=== PATIENT | female | born 1975 | race Caucasian/White ===

== ENCOUNTER 2019-06-24 08:58 | Inpatient (IN) | payer MEDICAID ==
[~2019-06-24] VITALS: Ht 167.6 cm; Wt 70.0 kg
[2019-06-24 09:57] LABS: BASOPHILS % (AUTO) 0.5 % (0.0-2.0); EOSINOPHILS % (AUTO) 1.4 % (1.0-6.0); HEMATOCRIT 31.3 % (36-46); HEMOGLOBIN 10.5 g/dL (12.0-16.0); LYMPHOCYTES # (AUTO) 2.3 K/uL (1.0-4.8); LYMPHOCYTES % (AUTO) 18.3 % (22.0-44.0); MEAN CORPUSCULAR HEMOGLOBIN 28.3 pg (26.0-34.0); MEAN CORPUSCULAR HGB CONC 33.6 G/dL (31.0-37.0); MEAN CORPUSCULAR VOLUME 84 fL (80-100); MONOCYTES # (AUTO) 1.3 K/uL (0.1-1.0); MONOCYTES % (AUTO) 10.8 % (2.0-9.0); NEUTROPHILS # (AUTO) 8.5 K/uL (1.8-7.7); PLATELET COUNT (AUTO) 321 K/uL (150-450); RED BLOOD CELL COUNT(AUTO) 3.72 MIL/uL (4.00-5.20); RED CELL DISTRIBUTION WIDTH 18.5 % (11.5-14.5)
[2019-06-24] MEDS ORDERED: LORazepam 2 MG TABLET PO ONE (10:00)
[2019-06-24] MEDS ORDERED: DiphenhydrAMINE HCL 25 MG CAPSULE PO ONE (10:00)
[2019-06-24] MEDS ORDERED: HALOPERIDOL 5 MG TABLET PO ONE (10:00)
[2019-06-24 10:06] LABS: ANION GAP 11 mmol/L (8-16); CALCIUM, TOTAL 8.1 mg/dL (8.8-10.5); CARBON DIOXIDE 25 mmol/L (22-29); CHLORIDE 102 mmol/L (98-107); CREATININE 0.65 mg/dL (0.60-1.30); GLOMERULAR FILTR. RATE CALC > 60 mL/min (>60); GLUCOSE,RANDOM 87 mg/dL (70-110); POTASSIUM 3.7 mmol/L (3.5-5.1); SODIUM SERUM 138 mmol/L (136-145); UREA NITROGEN, BLOOD 21 mg/dL (7-18)
[2019-06-24 10:30] LABS: ALANINE AMINOTRANSFERASE 24 U/L (12-78); ALBUMIN 3.1 g/dL (3.4-5.0); ALKALINE PHOSPHATASE 147 U/L (46-116); ASPARTATE AMINOTRANSFERASE 30 U/L (15-37); BILIRUBIN,TOTAL 0.2 mg/dL (0.1-1.0); CREATINE KINASE, TOTAL ONLY 75 U/L (26-192); HCG,QUANTITATIVE 1 mIU/mL (0-6); TOTAL PROTEIN, SERUM 8.4 g/dL (6.4-8.2)
[2019-06-24] MEDS ORDERED: OLANZapine 5 MG RAPDIS TABLET PO PRN (10:30)
[2019-06-24] MEDS ORDERED: ZOLPIDEM TARTRATE 10 MG TABLET PO PRN (10:30)
[2019-06-24] MEDS ORDERED: LORazepam 2 MG TABLET PO PRN (10:30)
[2019-06-24 11:00] LABS: APPEARANCE,URINE CLOUDY (CLEAR); BILIRUBIN,URINE NEGATIVE (NEGATIVE); GLUCOSE, URINE (UA) NEGATIVE (NEGATIVE); KETONES,URINE NEGATIVE (NEGATIVE); LEUKOCYTE ESTERASE ,URINE MODERATE (NEGATIVE); NITRATE,URINE NEGATIVE (NEGATIVE); OCCULT BLOOD,URINE NEGATIVE (NEGATIVE); PROTEIN,URINE SEE CONFIRM (NEGATIVE); UROBILINOGEN,URINE 0.2 mg/dL (<=1.0)
[2019-06-24 11:06] LABS: AMPHET/METH SCREEN,URINE POSITIVE (NEGATIVE); BARBITURATE SCREEN, URINE NEGATIVE (NEGATIVE); BENZODIAZEPINES SCREEN,URINE NEGATIVE (NEGATIVE); CANNABINOID SCREEN,URINE POSITIVE (NEGATIVE); COCAINE SCREEN,URINE NEGATIVE (NEGATIVE); METHADONE SCREEN, URINE NEGATIVE (NEGATIVE); OPIATE SCREEN,URINE NEGATIVE (NEGATIVE)
[2019-06-24 11:07] LABS: PHENCYCLIDINE SCREEN,URINE NEGATIVE (NEGATIVE)
[2019-06-24 11:59] LABS: SULFOSALICYLIC ACID,URINE 1+ (Negative)
[2019-06-24 12:00] LABS: BACTERIA,URINE None Seen /HPF (None Seen); CALCIUM OXALATE CRYSTALS,UR Moderate /LPF (None Seen); RBC,URINE None Seen /HPF (0-2); SQUAMOUS EPITHELIAL CELL,UR Moderate /LPF (None Seen)
[2019-06-24 13:56] VITALS: BP 100/54
[2019-06-24 14:15] VITALS: BP 100/54
[2019-06-24] MEDS: OLANZapine 5 MG TABLET PO SCH (17:47)
[2019-06-24 18:55] VITALS: BP 100/62
[2019-06-25 07:55] LABS: CHOL/HDL RATIO 9.8 (3.9-5.7)
[2019-06-25] MEDS: OLANZapine 5 MG TABLET PO SCH ×2 (09:00→17:00)
[2019-06-25] MEDS ORDERED: IBUPROFEN 400 MG TABLET PO PRN (15:00)
[2019-06-25] MEDS ORDERED: ALBUTEROL SULFATE HFA 90 MCG/PUFF 8 GM INHALER IH PRN (15:00)
[2019-06-25] MEDS ORDERED: ACETAMINOPHEN 325 MG TABLET PO PRN (15:00)
[2019-06-25] MEDS ORDERED: PETROLATUM,WHITE 28 GM JELLY TP PRN (15:00)
[2019-06-25] MEDS ORDERED: ONDANSETRON HCL 4 MG TABLET PO PRN (15:00)
[2019-06-25] MEDS ORDERED: MAG HYDROX/AL HYDROX/SIMETH ES 30 ML SUSPENSION UDCUP PO PRN (15:00)
[2019-06-25] MEDS ORDERED: DOCUSATE SODIUM 100 MG CAPSULE PO PRN (15:00)
[2019-06-25] MEDS ORDERED: NICOTINE 14 MG/24 HOUR PATCH TD PRN (15:00)
[2019-06-25] MEDS ORDERED: MAGNESIUM HYDROXIDE SUSPENSION 30 ML UDCUP PO PRN (15:00)
[2019-06-25] MEDS ORDERED: GuaiFENesin/D-METHORPHAN [SUGAR-FREE] 200-20MG/10 ML SYRUP UDCUP PO PRN (15:00)
[2019-06-25] MEDS ORDERED: CloNIDine HCL 0.1 MG TABLET PO PRN (15:00)
[2019-06-25 16:30] VITALS: BP 107/66
[2019-06-26 00:40] VITALS: BP 104/72
[2019-06-26] MEDS: LOPERAMIDE HCL 2 MG CAPSULE PO PRN ×2 (00:51→19:19)
[2019-06-26 08:30] VITALS: BP 104/57
[2019-06-26] MEDS: OLANZapine 5 MG TABLET PO SCH ×2 (09:00→16:35)
[2019-06-26 16:15] VITALS: BP 103/65
[2019-06-27 03:05] VITALS: BP 100/64
[2019-06-27] MEDS: OLANZapine 5 MG TABLET PO SCH (09:00)
[2019-06-27] MEDS ORDERED: OLAN5TAB2 PO (11:12)
== END 2019-06-27 14:18 | disposition home or self-care (01) | DRG 750 ==
LOC: EMS 09:01 → 3EI 11:27
PROVIDERS: ADMIT Psychiatry & Neurology Psychiatry; ATTEND Psychiatry & Neurology Psychiatry
DX: F20.9 Schizophrenia, unspecified (principal); Z78.1 Physical restraint status; Z59.0 Homelessness; D64.9 Anemia, unspecified; D72.829 Elevated white blood cell count, unspecified; F31.9 Bipolar disorder, unspecified; Z91.14 Patient's other noncompliance with medication regimen; F10.10 Alcohol abuse, uncomplicated; Z79.899 Other long term (current) drug therapy
CPT/HCPCS: G0480; J3230

== ENCOUNTER 2019-06-28 06:42 | Inpatient (IN) | payer MEDICAID ==
[~2019-06-28] VITALS: Ht 160 cm; Wt 67.5 kg
[2019-06-28] MEDS ORDERED: ZOLPIDEM TARTRATE 10 MG TABLET PO PRN (10:30)
[2019-06-28] MEDS ORDERED: HALOPERIDOL LACTATE 5 MG/ML VIAL ONE (11:17)
[2019-06-28] MEDS ORDERED: DiphenhydrAMINE HCL 50 MG/ML VIAL ONE (11:17)
[2019-06-28] MEDS ORDERED: LORazepam 2 MG/ML VIAL ONE (11:17)
[2019-06-28] MEDS ORDERED: DiphenhydrAMINE HCL 50 MG/ML VIAL IM ONE (11:30)
[2019-06-28] MEDS ORDERED: LORazepam 2 MG/ML VIAL IM ONE (11:30)
[2019-06-28] MEDS ORDERED: HALOPERIDOL LACTATE 5 MG/ML VIAL IM ONE (11:30)
[2019-06-28 14:39] VITALS: BP 106/59
[2019-06-28 14:52] VITALS: BP 106/59
[2019-06-28] MEDS ORDERED: INFLUENZA VIRUS VACCINE QVS 2019-20 (3YR+)/PF 60 MCG/0.5 ML SYRINGE IM ONE (15:30)
[2019-06-28 16:00] VITALS: BP 117/64
[2019-06-28 22:36] VITALS: BP 117/64
[2019-06-28] MEDS: LOPERAMIDE HCL 2 MG CAPSULE PO PRN (22:58)
[2019-06-29 00:15] VITALS: BP 89/52
[2019-06-29] MEDS ORDERED: HALOPERIDOL LACTATE 5 MG/ML VIAL IM ONE (11:15)
[2019-06-29] MEDS ORDERED: DiphenhydrAMINE HCL 50 MG/ML VIAL IM ONE (11:15)
[2019-06-29] MEDS ORDERED: LORazepam 2 MG/ML VIAL IM ONE (11:15)
[2019-06-29] MEDS ORDERED: LORazepam 2 MG/ML VIAL ONE (11:17)
[2019-06-29] MEDS ORDERED: DiphenhydrAMINE HCL 50 MG/ML VIAL ONE (11:17)
[2019-06-29] MEDS ORDERED: HALOPERIDOL LACTATE 5 MG/ML VIAL ONE (11:17)
[2019-06-29 19:08] VITALS: BP 90/51
[2019-06-30] MEDS: LOPERAMIDE HCL 2 MG CAPSULE PO PRN (15:44)
[2019-06-30] MEDS: HALOPERIDOL 5 MG TABLET PO PRN (21:35)
[2019-07-01 18:39] VITALS: BP 101/58
[2019-07-01] MEDS: HALOPERIDOL 5 MG TABLET PO PRN (18:42)
[2019-07-02] MEDS ORDERED: MAGNESIUM HYDROXIDE SUSPENSION 30 ML UDCUP PO PRN (12:30)
[2019-07-02] MEDS ORDERED: CloNIDine HCL 0.1 MG TABLET PO PRN (12:30)
[2019-07-02] MEDS ORDERED: MAG HYDROX/AL HYDROX/SIMETH ES 30 ML SUSPENSION UDCUP PO PRN (12:30)
[2019-07-02] MEDS ORDERED: PETROLATUM,WHITE 28 GM JELLY TP PRN (12:30)
[2019-07-02] MEDS ORDERED: DOCUSATE SODIUM 100 MG CAPSULE PO PRN (12:30)
[2019-07-02] MEDS ORDERED: NICOTINE 14 MG/24 HOUR PATCH TD PRN (12:30)
[2019-07-02] MEDS ORDERED: GuaiFENesin/D-METHORPHAN [SUGAR-FREE] 200-20MG/10 ML SYRUP UDCUP PO PRN (12:30)
[2019-07-02] MEDS ORDERED: LOPERAMIDE HCL 2 MG CAPSULE PO PRN (12:30)
[2019-07-02] MEDS ORDERED: ONDANSETRON HCL 4 MG TABLET PO PRN (12:30)
[2019-07-02] MEDS ORDERED: ACETAMINOPHEN 325 MG TABLET PO PRN (12:30)
[2019-07-02] MEDS ORDERED: IBUPROFEN 400 MG TABLET PO PRN (12:30)
[2019-07-02] MEDS ORDERED: ALBUTEROL SULFATE HFA 90 MCG/PUFF 8 GM INHALER IH PRN (12:30)
[2019-07-02] MEDS: HALOPERIDOL 5 MG TABLET PO PRN (20:00)
[2019-07-02] MEDS: LORazepam 2 MG TABLET PO PRN (20:00)
[2019-07-03] MEDS: LORazepam 2 MG TABLET PO PRN ×2 (14:28→18:36)
[2019-07-03 15:28] LABS: BASOPHILS % (AUTO) 0.8 % (0.0-2.0); EOSINOPHILS % (AUTO) 2.8 % (1.0-6.0); HEMATOCRIT 35.4 % (36-46); HEMOGLOBIN 11.8 g/dL (12.0-16.0); LYMPHOCYTES # (AUTO) 2.5 K/uL (1.0-4.8); LYMPHOCYTES % (AUTO) 22.9 % (22.0-44.0); MEAN CORPUSCULAR HEMOGLOBIN 28.9 pg (26.0-34.0); MEAN CORPUSCULAR HGB CONC 33.2 G/dL (31.0-37.0); MEAN CORPUSCULAR VOLUME 87 fL (80-100); MONOCYTES % (AUTO) 9.7 % (2.0-9.0); NEUTROPHILS # (AUTO) 6.8 K/uL (1.8-7.7); NEUTROPHILS % (AUTO) 63.8 % (40.0-70.0); PLATELET COUNT (AUTO) 442 K/uL (150-450); RED BLOOD CELL COUNT(AUTO) 4.06 MIL/uL (4.00-5.20); RED CELL DISTRIBUTION WIDTH 18.8 % (11.5-14.5)
[2019-07-03 15:39] LABS: HEMOGLOBIN A1C 4.6 % (4.5-6.2)
[2019-07-03 16:12] LABS: ALANINE AMINOTRANSFERASE 24 U/L (12-78); ALKALINE PHOSPHATASE 83 U/L (46-116); ANION GAP 7 mmol/L (8-16); ASPARTATE AMINOTRANSFERASE 25 U/L (15-37); BILIRUBIN,TOTAL 0.2 mg/dL (0.1-1.0); CALCIUM, TOTAL 8.4 mg/dL (8.8-10.5); CARBON DIOXIDE 25 mmol/L (22-29); CHLORIDE 99 mmol/L (98-107); CHOL/HDL RATIO 5.6 (3.9-5.7); CHOLESTEROL 158 mg/dL (131-200); CREATININE 0.71 mg/dL (0.60-1.30); FREE T4 (FREE THYROXINE) 0.91 ng/dL (0.76-1.46); GLOMERULAR FILTR. RATE CALC > 60 mL/min (>60); GLUCOSE,RANDOM 117 mg/dL (70-110); HCG,QUANTITATIVE < 1 mIU/mL (0-6); HDL CHOLESTEROL 28 mg/dL (40-60); LDL CHOL (CALC.) 106 mg/dL (0-130); POTASSIUM 4.4 mmol/L (3.5-5.1); SODIUM SERUM 131 mmol/L (136-145); THYROID STIMULATING HORMONE 2.99 uIU/mL (0.36-3.74); TOTAL PROTEIN, SERUM 8.6 g/dL (6.4-8.2); TRIGLYCERIDES 118 mg/dL (15-150); UREA NITROGEN, BLOOD 14 mg/dL (7-18)
[2019-07-03 16:22] VITALS: BP 111/64
[2019-07-03 18:22] LABS: AMPHET/METH SCREEN,URINE NEGATIVE (NEGATIVE); APPEARANCE,URINE CLOUDY (CLEAR); BARBITURATE SCREEN, URINE NEGATIVE (NEGATIVE); BENZODIAZEPINES SCREEN,URINE NEGATIVE (NEGATIVE); BILIRUBIN,URINE NEGATIVE (NEGATIVE); CANNABINOID SCREEN,URINE NEGATIVE (NEGATIVE); COCAINE SCREEN,URINE NEGATIVE (NEGATIVE); GLUCOSE, URINE (UA) NEGATIVE (NEGATIVE); KETONES,URINE NEGATIVE (NEGATIVE); LEUKOCYTE ESTERASE ,URINE LARGE (NEGATIVE); METHADONE SCREEN, URINE NEGATIVE (NEGATIVE); NITRATE,URINE NEGATIVE (NEGATIVE); OCCULT BLOOD,URINE NEGATIVE (NEGATIVE); OPIATE SCREEN,URINE NEGATIVE (NEGATIVE); PROTEIN,URINE NEGATIVE (NEGATIVE); UROBILINOGEN,URINE 0.2 mg/dL (<=1.0)
[2019-07-03] MEDS: HALOPERIDOL 5 MG TABLET PO PRN (18:36)
[2019-07-03 18:38] LABS: BACTERIA,URINE Many /HPF (None Seen); RBC,URINE None Seen /HPF (0-2); SQUAMOUS EPITHELIAL CELL,UR Many /LPF (None Seen)
[2019-07-03 18:57] LABS: PHENCYCLIDINE SCREEN,URINE NEGATIVE (NEGATIVE)
[2019-07-03] MEDS: CIPROFLOXACIN HCL 250 MG TABLET PO SCH (20:19)
[2019-07-04] MEDS: CIPROFLOXACIN HCL 250 MG TABLET PO SCH ×2 (09:07→16:06)
[2019-07-04] MEDS: OLANZapine 10 MG TABLET PO SCH (16:06)
[2019-07-04] MEDS: LORazepam 2 MG TABLET PO PRN (16:22)
[2019-07-04 16:43] VITALS: BP 108/59
[2019-07-05] MEDS: OLANZapine 10 MG TABLET PO SCH (08:03)
[2019-07-05] MEDS: CIPROFLOXACIN HCL 250 MG TABLET PO SCH (08:03)
[2019-07-05] MEDS: LORazepam 2 MG TABLET PO PRN (08:03)
[2019-07-05] MEDS: HALOPERIDOL 5 MG TABLET PO PRN (08:04)
[2019-07-05 08:26] VITALS: BP 116/76
[2019-07-05] MEDS ORDERED: OLAN10TA3 PO (13:56)
[2019-07-05] MEDS ORDERED: CIP250 PO (13:57)
== END 2019-07-05 14:40 | disposition home or self-care (01) | DRG 750 ==
LOC: EMS 06:42 → 3EI 13:54 → 3EC 06-29 12:46
PROVIDERS: ADMIT Psychiatry & Neurology Psychiatry; ATTEND Psychiatry & Neurology Psychiatry
DX: F20.0 Paranoid schizophrenia (principal); I95.9 Hypotension, unspecified; Z78.1 Physical restraint status; Z59.0 Homelessness; N39.0 Urinary tract infection, site not specified; F10.10 Alcohol abuse, uncomplicated; D64.9 Anemia, unspecified; F41.9 Anxiety disorder, unspecified; F15.10 Other stimulant abuse, uncomplicated; F12.10 Cannabis abuse, uncomplicated; F19.10 Other psychoactive substance abuse, uncomplicated; Z91.14 Patient's other noncompliance with medication regimen; Z71.41 Alcohol abuse counseling and surveillance of alcoholic
CPT/HCPCS: 80307; 83036; 84439; 84443; 87086; J1200; J1630; J2060

== ENCOUNTER 2019-08-31 17:14 | Inpatient (IN) | payer MEDICAID ==
[~2019-08-31] VITALS: Ht 165.1 cm; Wt 68.9 kg
[~2019-08-31 17:14] MED LIST: CIP250 PO; OLAN10TA3 PO
[2019-08-31 19:05] LABS: BASOPHILS % (AUTO) 0.5 % (0.0-2.0); EOSINOPHILS % (AUTO) 1.4 % (1.0-6.0); HEMATOCRIT 37.6 % (36-46); HEMOGLOBIN 12.6 g/dL (12.0-16.0); LYMPHOCYTES # (AUTO) 2.4 K/uL (1.0-4.8); LYMPHOCYTES % (AUTO) 24.5 % (22.0-44.0); MEAN CORPUSCULAR HEMOGLOBIN 29.3 pg (26.0-34.0); MEAN CORPUSCULAR HGB CONC 33.6 G/dL (31.0-37.0); MEAN CORPUSCULAR VOLUME 87 fL (80-100); MONOCYTES # (AUTO) 0.8 K/uL (0.1-1.0); MONOCYTES % (AUTO) 8.4 % (2.0-9.0); NEUTROPHILS # (AUTO) 6.3 K/uL (1.8-7.7); NEUTROPHILS % (AUTO) 65.2 % (40.0-70.0); PLATELET COUNT (AUTO) 363 K/uL (150-450); RED BLOOD CELL COUNT(AUTO) 4.32 MIL/uL (4.00-5.20); RED CELL DISTRIBUTION WIDTH 14.7 % (11.5-14.5)
[2019-08-31 19:14] LABS: ANION GAP 6 mmol/L (8-16); CALCIUM, TOTAL 8.8 mg/dL (8.8-10.5); CARBON DIOXIDE 27 mmol/L (22-29); CHLORIDE 101 mmol/L (98-107); CREATININE 0.71 mg/dL (0.60-1.30); GLOMERULAR FILTR. RATE CALC > 60 mL/min (>60); GLUCOSE,RANDOM 96 mg/dL (70-110); POTASSIUM 3.5 mmol/L (3.5-5.1); SODIUM SERUM 134 mmol/L (136-145); UREA NITROGEN, BLOOD 11 mg/dL (7-18)
[2019-08-31 19:25] LABS: ALANINE AMINOTRANSFERASE 16 U/L (12-78); ALBUMIN 3.4 g/dL (3.4-5.0); ALKALINE PHOSPHATASE 63 U/L (46-116); ASPARTATE AMINOTRANSFERASE 19 U/L (15-37); BILIRUBIN,TOTAL 0.2 mg/dL (0.1-1.0); HCG,QUANTITATIVE < 1 mIU/mL (0-6); TOTAL PROTEIN, SERUM 7.9 g/dL (6.4-8.2)
[2019-08-31] MEDS ORDERED: OLANZapine 5 MG RAPDIS TABLET PO PRN (20:15)
[2019-08-31] MEDS: OLANZapine 5 MG TABLET PO SCH (20:45)
[2019-08-31 21:18] LABS: APPEARANCE,URINE CLEAR (CLEAR); BILIRUBIN,URINE NEGATIVE (NEGATIVE); GLUCOSE, URINE (UA) NEGATIVE (NEGATIVE); KETONES,URINE NEGATIVE (NEGATIVE); LEUKOCYTE ESTERASE ,URINE SMALL (NEGATIVE); NITRATE,URINE NEGATIVE (NEGATIVE); OCCULT BLOOD,URINE SMALL (NEGATIVE); PH,URINE 7.5 (5.0-8.0); PROTEIN,URINE NEGATIVE (NEGATIVE); UROBILINOGEN,URINE 0.2 mg/dL (<=1.0)
[2019-08-31 21:20] LABS: AMPHET/METH SCREEN,URINE POSITIVE (NEGATIVE); BARBITURATE SCREEN, URINE NEGATIVE (NEGATIVE); BENZODIAZEPINES SCREEN,URINE NEGATIVE (NEGATIVE); CANNABINOID SCREEN,URINE POSITIVE (NEGATIVE); COCAINE SCREEN,URINE NEGATIVE (NEGATIVE); METHADONE SCREEN, URINE NEGATIVE (NEGATIVE); OPIATE SCREEN,URINE POSITIVE (NEGATIVE)
[2019-08-31 21:21] LABS: PHENCYCLIDINE SCREEN,URINE NEGATIVE (NEGATIVE)
[2019-08-31 21:32] LABS: BACTERIA,URINE None Seen /HPF (None Seen); RBC,URINE 0-2 /HPF (0-2); SQUAMOUS EPITHELIAL CELL,UR Moderate /LPF (None Seen)
[2019-09-01] MEDS ORDERED: HALOPERIDOL LACTATE 5 MG/ML VIAL IM ONE (00:15)
[2019-09-01] MEDS ORDERED: LORazepam 2 MG/ML VIAL IM ONE (00:15)
[2019-09-01] MEDS ORDERED: DiphenhydrAMINE HCL 50 MG/ML VIAL IM ONE (00:15)
[2019-09-01] MEDS ORDERED: INFLUENZA VIRUS VACCINE QVS 2019-20 (3YR+)/PF 60 MCG/0.5 ML SYRINGE IM ONE (01:15)
[2019-09-01] MEDS ORDERED: LOPERAMIDE HCL 2 MG CAPSULE PO PRN (12:15)
[2019-09-01] MEDS ORDERED: TUBERCULIN, PURIFIED PROTEIN DERIVATIVE 5 TU/0.1 ML SYRINGE ID ONE (12:15)
[2019-09-01] MEDS ORDERED: PROMETHAZINE HCL 25 MG TABLET PO PRN (12:15)
[2019-09-01] MEDS ORDERED: HydrOXYzine PAMOATE 50 MG CAPSULE PO PRN (12:15)
[2019-09-01] MEDS ORDERED: MAG HYDROX/AL HYDROX/SIMETH ES 30 ML SUSPENSION UDCUP PO PRN (12:15)
[2019-09-01] MEDS ORDERED: MAGNESIUM HYDROXIDE SUSPENSION 30 ML UDCUP PO PRN (12:15)
[2019-09-01 16:51] VITALS: BP 106/68
[2019-09-01] MEDS: THIAMINE HCL 100 MG TABLET PO SCH (16:57)
[2019-09-01] MEDS: OLANZapine 5 MG TABLET PO SCH (20:41)
[2019-09-01] MEDS: LORazepam 2 MG TABLET PO PRN (21:31)
[2019-09-02 04:26] VITALS: BP 91/57
[2019-09-02 06:25] VITALS: BP 102/63
[2019-09-02] MEDS: NALTREXONE HCL 50 MG TABLET PO SCH ×2 (07:59→08:39)
[2019-09-02] MEDS: THIAMINE HCL 100 MG TABLET PO SCH ×3 (07:59→17:00)
[2019-09-02] MEDS: MULTIVITAMINS WITH MINERALS, THERAPEUTIC TABLET PO SCH ×2 (07:59→08:39)
[2019-09-02] MEDS: FOLIC ACID 1 MG TABLET PO SCH ×2 (07:59→08:39)
[2019-09-02 08:06] VITALS: BP 100/62
[2019-09-02 08:31] LABS: CHOL/HDL RATIO 4.8 (3.9-5.7); FREE T4 (FREE THYROXINE) 1.03 ng/dL (0.76-1.46); THYROID STIMULATING HORMONE 2.52 uIU/mL (0.36-3.74)
[2019-09-02] MEDS: NICOTINE 21 MG/24 HOUR PATCH TD SCH (14:28)
[2019-09-02] MEDS ORDERED: PENICILLIN G BENZATHINE LA 2,400,000 UNITS/4 ML SYRINGE IM ONE (17:00)
[2019-09-02] MEDS: GuaiFENesin/D-METHORPHAN [SUGAR-FREE] 200-20MG/10 ML SYRUP UDCUP PO PRN (17:57)
[2019-09-02] MEDS: LORazepam 2 MG TABLET PO PRN (20:54)
[2019-09-02] MEDS: OLANZapine 5 MG TABLET PO SCH (20:58)
[2019-09-03 05:30] VITALS: BP 100/61
[2019-09-03 08:06] VITALS: BP 119/68
[2019-09-03] MEDS: MULTIVITAMINS WITH MINERALS, THERAPEUTIC TABLET PO SCH (09:00)
[2019-09-03] MEDS: NALTREXONE HCL 50 MG TABLET PO SCH (09:00)
[2019-09-03] MEDS: FOLIC ACID 1 MG TABLET PO SCH (09:00)
[2019-09-03] MEDS: THIAMINE HCL 100 MG TABLET PO SCH ×2 (09:00→17:00)
[2019-09-03] MEDS: NICOTINE 21 MG/24 HOUR PATCH TD SCH (09:06)
[2019-09-03] MEDS: GuaiFENesin/D-METHORPHAN [SUGAR-FREE] 200-20MG/10 ML SYRUP UDCUP PO PRN (13:59)
[2019-09-03 16:03] VITALS: BP 118/73
[2019-09-03] MEDS ORDERED: IBUPROFEN 600 MG TABLET PO PRN (17:15)
[2019-09-03] MEDS: LORazepam 2 MG TABLET PO PRN (18:38)
[2019-09-03 18:39] VITALS: BP 109/79
[2019-09-03] MEDS: ACETAMINOPHEN 325 MG TABLET PO PRN (18:39)
[2019-09-03] MEDS: OLANZapine 5 MG TABLET PO SCH (20:08)
[2019-09-04 01:28] VITALS: BP 100/60
[2019-09-04 08:01] VITALS: BP 121/69
[2019-09-04] MEDS: NICOTINE 21 MG/24 HOUR PATCH TD SCH (08:57)
[2019-09-04] MEDS: MULTIVITAMINS WITH MINERALS, THERAPEUTIC TABLET PO SCH (08:59)
[2019-09-04] MEDS: FOLIC ACID 1 MG TABLET PO SCH (08:59)
[2019-09-04] MEDS: NALTREXONE HCL 50 MG TABLET PO SCH (08:59)
[2019-09-04] MEDS: THIAMINE HCL 100 MG TABLET PO SCH ×2 (08:59→17:00)
[2019-09-04] MEDS: LORazepam 2 MG TABLET PO PRN ×2 (10:50→17:34)
[2019-09-04] MEDS: GuaiFENesin/D-METHORPHAN [SUGAR-FREE] 200-20MG/10 ML SYRUP UDCUP PO PRN ×2 (10:59→17:34)
[2019-09-04] MEDS: HALOPERIDOL 5 MG TABLET PO PRN (17:34)
[2019-09-04] MEDS: OLANZapine 5 MG TABLET PO SCH (20:14)
[2019-09-05 03:13] VITALS: BP 102/68
[2019-09-05] MEDS: NALTREXONE HCL 50 MG TABLET PO SCH (09:00)
[2019-09-05] MEDS: THIAMINE HCL 100 MG TABLET PO SCH ×2 (09:00→17:00)
[2019-09-05] MEDS: MULTIVITAMINS WITH MINERALS, THERAPEUTIC TABLET PO SCH (09:00)
[2019-09-05] MEDS: FOLIC ACID 1 MG TABLET PO SCH (09:00)
[2019-09-05] MEDS: NICOTINE 21 MG/24 HOUR PATCH TD SCH (09:21)
[2019-09-05] MEDS: GuaiFENesin/D-METHORPHAN [SUGAR-FREE] 200-20MG/10 ML SYRUP UDCUP PO PRN ×2 (12:34→18:56)
[2019-09-05] MEDS: LORazepam 2 MG TABLET PO PRN ×2 (12:34→18:21)
[2019-09-05] MEDS: ACETAMINOPHEN 325 MG TABLET PO PRN (14:03)
[2019-09-05 14:06] VITALS: BP 95/61
[2019-09-05] MEDS: OLANZapine 5 MG TABLET PO SCH (20:25)
[2019-09-06 04:52] VITALS: BP 101/60
[2019-09-06] MEDS: FOLIC ACID 1 MG TABLET PO SCH ×2 (08:09→09:00)
[2019-09-06] MEDS: THIAMINE HCL 100 MG TABLET PO SCH ×3 (08:09→16:05)
[2019-09-06] MEDS: NALTREXONE HCL 50 MG TABLET PO SCH ×2 (08:09→09:00)
[2019-09-06] MEDS: MULTIVITAMINS WITH MINERALS, THERAPEUTIC TABLET PO SCH ×2 (08:09→09:00)
[2019-09-06] MEDS: NICOTINE 21 MG/24 HOUR PATCH TD SCH (08:10)
[2019-09-06] MEDS: GuaiFENesin/D-METHORPHAN [SUGAR-FREE] 200-20MG/10 ML SYRUP UDCUP PO PRN ×2 (10:18→20:32)
[2019-09-06 16:45] VITALS: BP 108/64
[2019-09-06] MEDS: LORazepam 2 MG TABLET PO PRN (20:31)
[2019-09-06] MEDS: OLANZapine 5 MG TABLET PO SCH (20:32)
[2019-09-07] MEDS: HALOPERIDOL 5 MG TABLET PO PRN ×2 (00:07→21:13)
[2019-09-07 01:09] VITALS: BP 102/72
[2019-09-07] MEDS: FOLIC ACID 1 MG TABLET PO SCH (08:31)
[2019-09-07] MEDS: THIAMINE HCL 100 MG TABLET PO SCH ×2 (08:33→16:57)
[2019-09-07] MEDS: NALTREXONE HCL 50 MG TABLET PO SCH (08:33)
[2019-09-07] MEDS: MULTIVITAMINS WITH MINERALS, THERAPEUTIC TABLET PO SCH (08:33)
[2019-09-07] MEDS: NICOTINE 21 MG/24 HOUR PATCH TD SCH (08:34)
[2019-09-07] MEDS: GuaiFENesin/D-METHORPHAN [SUGAR-FREE] 200-20MG/10 ML SYRUP UDCUP PO PRN ×2 (12:25→21:13)
[2019-09-07] MEDS: LORazepam 2 MG TABLET PO PRN (16:14)
[2019-09-07] MEDS ORDERED: NALT50TA PO (17:00)
[2019-09-07] MEDS ORDERED: OLAN5TAB27 PO (17:00)
[2019-09-07] MEDS: OLANZapine 5 MG TABLET PO SCH (20:17)
[2019-09-08] MEDS: NICOTINE 21 MG/24 HOUR PATCH TD SCH (08:03)
[2019-09-08] MEDS: FOLIC ACID 1 MG TABLET PO SCH (08:05)
[2019-09-08] MEDS: NALTREXONE HCL 50 MG TABLET PO SCH (08:05)
[2019-09-08] MEDS: MULTIVITAMINS WITH MINERALS, THERAPEUTIC TABLET PO SCH (08:05)
[2019-09-08] MEDS: THIAMINE HCL 100 MG TABLET PO SCH (08:05)
[2019-09-08] MEDS: GuaiFENesin/D-METHORPHAN [SUGAR-FREE] 200-20MG/10 ML SYRUP UDCUP PO PRN (11:43)
== END 2019-09-08 13:15 | disposition home or self-care (01) | DRG 750 ==
LOC: EMS 17:15 → B3A 22:28
PROVIDERS: ADMIT Psychiatry & Neurology Psychiatry; ATTEND Psychiatry & Neurology Psychiatry
DX: F20.9 Schizophrenia, unspecified (principal); Z91.14 Patient's other noncompliance with medication regimen; F12.90 Cannabis use, unspecified, uncomplicated; Z28.21 Immunization not carried out because of patient refusal; F15.90 Other stimulant use, unspecified, uncomplicated; F17.200 Nicotine dependence, unspecified, uncomplicated; F41.9 Anxiety disorder, unspecified; Z91.19 Patient's noncompliance with other medical treatment and regimen
CPT/HCPCS: 84439; 84443; 86592; 86593; 86780; G0480; J0561; J1200; J1630; J2060

== ENCOUNTER 2022-02-06 20:00 | Emergency (ER) | payer MEDICAID, OTHER ==
[~2022-02-06] VITALS: Ht 167.6 cm; Wt 68.0 kg
[~2022-02-06 20:00] MED LIST changes: -CIP250 PO; +NALT50TA PO; -OLAN10TA3 PO; +OLAN5TAB77 PO
[2022-02-06 21:29] LABS: APPEARANCE,URINE CLEAR (CLEAR); BILIRUBIN,URINE NEGATIVE (NEGATIVE); GLUCOSE, URINE (UA) NEGATIVE (NEGATIVE); KETONES,URINE NEGATIVE (NEGATIVE); LEUKOCYTE ESTERASE ,URINE NEGATIVE (NEGATIVE); NITRATE,URINE NEGATIVE (NEGATIVE); OCCULT BLOOD,URINE NEGATIVE (NEGATIVE); PH,URINE 6.5 (5.0-8.0); PROTEIN,URINE NEGATIVE (NEGATIVE); SPECIFIC GRAVITIY, URINE 1.009 (1.003-1.030); UROBILINOGEN,URINE <=1.0 mg/dL (<=1.0)
[2022-02-06 21:36] LABS: BASOPHILS % (AUTO) 0.6 % (0.0-2.0); EOSINOPHILS % (AUTO) 3.4 % (1.0-6.0); HEMATOCRIT 35.6 % (36-46); LYMPHOCYTES # (AUTO) 3.7 K/uL (1.0-4.8); LYMPHOCYTES % (AUTO) 32.8 % (22.0-44.0); MEAN CORPUSCULAR HEMOGLOBIN 30.9 pg (26.0-34.0); MEAN CORPUSCULAR HGB CONC 33.6 G/dL (31.0-37.0); MEAN CORPUSCULAR VOLUME 92 fL (80-100); MONOCYTES # (AUTO) 1.2 K/uL (0.1-1.0); MONOCYTES % (AUTO) 10.6 % (2.0-9.0); NEUTROPHILS % (AUTO) 52.6 % (40.0-70.0); PLATELET COUNT (AUTO) 307 K/uL (150-450); RED BLOOD CELL COUNT(AUTO) 3.87 MIL/uL (4.00-5.20); RED CELL DISTRIBUTION WIDTH 14.5 % (11.5-14.5)
[2022-02-06 21:46] LABS: ANION GAP 9 mmol/L (8-16); CALCIUM, TOTAL 8.4 mg/dL (8.8-10.5); CARBON DIOXIDE 25 mmol/L (22-29); CHLORIDE 103 mmol/L (98-107); CREATININE 0.72 mg/dL (0.60-1.30); GLOMERULAR FILTR. RATE CALC > 60 mL/min (>60); GLUCOSE,RANDOM 101 mg/dL (70-110); POTASSIUM 3.4 mmol/L (3.5-5.1); SODIUM SERUM 137 mmol/L (136-145); UREA NITROGEN, BLOOD 11 mg/dL (7-18)
[2022-02-06 21:48] LABS: PROTHROMBIN TIME 10.3 SEC (9.4-11.6)
[2022-02-06 21:52] LABS: ALANINE AMINOTRANSFERASE 27 U/L (12-78); ALBUMIN 3.6 g/dL (3.4-5.0); ALKALINE PHOSPHATASE 69 U/L (46-116); ASPARTATE AMINOTRANSFERASE 20 U/L (15-37); BILIRUBIN,TOTAL 0.3 mg/dL (0.1-1.0); TOTAL PROTEIN, SERUM 7.4 g/dL (6.4-8.2)
[2022-02-06 22:00] LABS: B-TYPE NATRIURETIC PEPTIDE 20 pg/mL (0-100)
[2022-02-07] MEDS ORDERED: KETOROLAC TROMETHAMINE 30 MG/ML VIAL IVP ONE
[2022-02-07 00:01] VITALS: BP 138/72
== END 2022-02-07 00:30 | disposition home or self-care (01) ==
LOC: EMS 20:05
DX: R07.89 Other chest pain (principal); F31.9 Bipolar disorder, unspecified; F12.90 Cannabis use, unspecified, uncomplicated; F15.10 Other stimulant abuse, uncomplicated; F17.210 Nicotine dependence, cigarettes, uncomplicated
CPT/HCPCS: 36415; 71045; 80053; 81003; 83880; 84484; 85025; 85610; 85730; 93005; 96374; 99285; J1885

== ENCOUNTER 2022-03-12 19:49 | Emergency (ER) | payer OTHER ==
[~2022-03-12] VITALS: Ht 165.1 cm; Wt 90.9 kg
[2022-03-12 20:34] VITALS: BP 149/81
[2022-03-12] MEDS ORDERED: ACETAMINOPHEN 500 MG TABLET PO ONE (21:30)
[2022-03-12] MEDS ORDERED: NIRM1TAB PO (21:48)
== END 2022-03-12 21:57 | disposition home or self-care (01) ==
LOC: EMS 19:58
DX: U07.1 COVID-19 (principal); F12.90 Cannabis use, unspecified, uncomplicated; F15.90 Other stimulant use, unspecified, uncomplicated; F17.210 Nicotine dependence, cigarettes, uncomplicated; F31.9 Bipolar disorder, unspecified; Z79.899 Other long term (current) drug therapy
CPT/HCPCS: 99283

== ENCOUNTER 2022-06-18 15:54 | Emergency (ER) | payer OTHER ==
[~2022-06-18] VITALS: Ht 167.6 cm; Wt 97.7 kg
[~2022-06-18 15:54] MED LIST changes: +NIRM1TAB PO
[2022-06-18] MEDS ORDERED: LORA-1370 PO (16:11)
[2022-06-18] MEDS ORDERED: OMEP10 PO (16:11)
[2022-06-18 17:42] LABS: BASOPHILS % (AUTO) 0.6 % (0.0-2.0); EOSINOPHILS % (AUTO) 1.4 % (1.0-6.0); HEMATOCRIT 39.2 % (36-46); HEMOGLOBIN 13.1 g/dL (12.0-16.0); LYMPHOCYTES # (AUTO) 2.8 K/uL (1.0-4.8); LYMPHOCYTES % (AUTO) 27.9 % (22.0-44.0); MEAN CORPUSCULAR HEMOGLOBIN 29.8 pg (26.0-34.0); MEAN CORPUSCULAR HGB CONC 33.5 G/dL (31.0-37.0); MEAN CORPUSCULAR VOLUME 89 fL (80-100); MONOCYTES # (AUTO) 1.1 K/uL (0.1-1.0); MONOCYTES % (AUTO) 10.7 % (2.0-9.0); NEUTROPHILS % (AUTO) 59.4 % (40.0-70.0); PLATELET COUNT (AUTO) 330 K/uL (150-450); RED CELL DISTRIBUTION WIDTH 13.9 % (11.5-14.5)
[2022-06-18 17:54] LABS: ANION GAP 7 mmol/L (8-16); CALCIUM, TOTAL 8.7 mg/dL (8.8-10.5); CARBON DIOXIDE 28 mmol/L (22-29); CHLORIDE 102 mmol/L (98-107); CREATININE 0.85 mg/dL (0.60-1.30); GLOMERULAR FILTR. RATE CALC > 60 mL/min (>60); GLUCOSE,RANDOM 88 mg/dL (70-110); POTASSIUM 3.6 mmol/L (3.5-5.1); SODIUM SERUM 137 mmol/L (136-145); UREA NITROGEN, BLOOD 10 mg/dL (7-18)
[2022-06-18 18:05] LABS: ALANINE AMINOTRANSFERASE 19 U/L (12-78); ALBUMIN 3.5 g/dL (3.4-5.0); ALKALINE PHOSPHATASE 60 U/L (46-116); ASPARTATE AMINOTRANSFERASE 17 U/L (15-37); BILIRUBIN,TOTAL 0.3 mg/dL (0.1-1.0); HCG,QUANTITATIVE < 1 mIU/mL (0-6); PHOSPHORUS 3.8 mg/dL (2.5-4.9); TOTAL PROTEIN, SERUM 7.4 g/dL (6.4-8.2)
[2022-06-18] MEDS ORDERED: MAGNESIUM OXIDE 400 MG TABLET PO ONE (18:30)
[2022-06-18 18:39] VITALS: BP 118/73
== END 2022-06-18 20:06 | disposition home or self-care (01) ==
LOC: EMS 15:58
DX: R20.2 Paresthesia of skin (principal); F31.9 Bipolar disorder, unspecified; F17.210 Nicotine dependence, cigarettes, uncomplicated; F12.90 Cannabis use, unspecified, uncomplicated; F15.90 Other stimulant use, unspecified, uncomplicated; Z91.040 Latex allergy status
CPT/HCPCS: 70450; 80053; 82962; 83735; 84100; 84702; 85025; 99284

== ENCOUNTER 2022-07-20 17:08 | Emergency (ER) | payer OTHER ==
[~2022-07-20] VITALS: Ht 160 cm; Wt 97.7 kg
[~2022-07-20 17:08] MED LIST changes: +LORA-1370 PO; -NALT50TA PO; -NIRM1TAB PO; -OLAN5TAB77 PO; +OMEP10 PO
[2022-07-20] MEDS ORDERED: DOXY-354 PO (17:24)
[2022-07-20 18:15] VITALS: BP 137/76
[2022-07-20 18:25] LABS: COVID AG,FIA SOURCE NASOPHARYNGEAL
[2022-07-20 18:42] LABS: RAPID GROUP A STREP NEGATIVE (NEGATIVE)
[2022-07-20 18:46] LABS: INFLUENZA TYPE A NEGATIVE FOR TYPE A (NEGATIVE); INFLUENZA TYPE B NEGATIVE FOR TYPE B (NEGATIVE)
[2022-07-20] MEDS ORDERED: MECL-134 PO (18:55)
[2022-07-20] MEDS ORDERED: BENZ-70 PO (18:55)
== END 2022-07-20 19:20 | disposition home or self-care (01) ==
LOC: EMS 17:12
DX: R42 Dizziness and giddiness (principal); B34.9 Viral infection, unspecified; F31.9 Bipolar disorder, unspecified; F12.90 Cannabis use, unspecified, uncomplicated; F15.90 Other stimulant use, unspecified, uncomplicated; Z20.822 Contact with and (suspected) exposure to COVID-19
CPT/HCPCS: 71045; 87430; 87804; 99284

== ENCOUNTER 2022-09-05 17:02 | Emergency (ER) | payer OTHER ==
[~2022-09-05] VITALS: Ht 160 cm; Wt 90.9 kg
[~2022-09-05 17:02] MED LIST changes: +BENZ-70 PO; +DOXY-354 PO; +MECL-134 PO
[2022-09-05 18:12] LABS: BASOPHILS % (AUTO) 0.4 % (0.0-2.0); EOSINOPHILS % (AUTO) 2.3 % (1.0-6.0); HEMATOCRIT 43.1 % (36-46); HEMOGLOBIN 14.4 g/dL (12.0-16.0); LYMPHOCYTES # (AUTO) 2.4 K/uL (1.0-4.8); MEAN CORPUSCULAR HEMOGLOBIN 30.1 pg (26.0-34.0); MEAN CORPUSCULAR HGB CONC 33.4 G/dL (31.0-37.0); MEAN CORPUSCULAR VOLUME 90 fL (80-100); MONOCYTES # (AUTO) 0.7 K/uL (0.1-1.0); MONOCYTES % (AUTO) 7.8 % (2.0-9.0); NEUTROPHILS # (AUTO) 5.2 K/uL (1.8-7.7); NEUTROPHILS % (AUTO) 61.5 % (40.0-70.0); PLATELET COUNT (AUTO) 334 K/uL (150-450); RED BLOOD CELL COUNT(AUTO) 4.79 MIL/uL (4.00-5.20); RED CELL DISTRIBUTION WIDTH 13.6 % (11.5-14.5)
[2022-09-05 18:30] LABS: ANION GAP 8 mmol/L (8-16); CALCIUM, TOTAL 9.2 mg/dL (8.8-10.5); CARBON DIOXIDE 29 mmol/L (22-29); CHLORIDE 100 mmol/L (98-107); CREATININE 0.85 mg/dL (0.60-1.30); GLUCOSE,RANDOM 112 mg/dL (70-110); SODIUM SERUM 137 mmol/L (136-145); UREA NITROGEN, BLOOD 13 mg/dL (7-18)
[2022-09-05 18:31] LABS: GLOMERULAR FILTR. RATE CALC > 60 mL/min (>60)
[2022-09-05 18:33] LABS: B-TYPE NATRIURETIC PEPTIDE 26 pg/mL (0-100)
[2022-09-05 19:01] LABS: CREATINE KINASE, TOTAL ONLY 77 U/L (26-192); HCG,QUANTITATIVE 1 mIU/mL (0-6)
[2022-09-05] MEDS ORDERED: AMOX1TAB16 PO (19:22)
[2022-09-05] MEDS ORDERED: AMOX TR/POT CLAV 875 MG/125 MG TABLET PO ONE (19:30)
[2022-09-05 19:47] VITALS: BP 124/65
[2022-09-05 19:58] LABS: COVID AG,FIA SOURCE NASOPHARYNGEAL
[2022-09-05 20:34] LABS: INFLUENZA TYPE A NEGATIVE FOR TYPE A (NEGATIVE); INFLUENZA TYPE B NEGATIVE FOR TYPE B (NEGATIVE)
== END 2022-09-05 20:00 | disposition home or self-care (01) ==
LOC: EMS 17:08
DX: R00.2 Palpitations (principal); I20.9 Angina pectoris, unspecified; F31.9 Bipolar disorder, unspecified; F12.90 Cannabis use, unspecified, uncomplicated; F15.90 Other stimulant use, unspecified, uncomplicated; F19.10 Other psychoactive substance abuse, uncomplicated; Z91.040 Latex allergy status; Z20.822 Contact with and (suspected) exposure to COVID-19
CPT/HCPCS: 99284; 87426; 80048; 82550; 83735; 83880; 84100; 84484; 84702; 85025; 87804; 36415; 93005; C9803

== ENCOUNTER 2023-05-06 21:38 | Emergency (ER) | payer OTHER ==
[~2023-05-06] VITALS: Ht 160 cm; Wt 96.4 kg
[~2023-05-06 21:38] MED LIST changes: +AMOX1TAB16 PO; -BENZ-70 PO; -DOXY-354 PO; -LORA-1370 PO; -MECL-134 PO; -OMEP10 PO
[2023-05-06 22:28] LABS: COVID AG,FIA SOURCE NASOPHARYNGEAL
[2023-05-06 22:47] LABS: SARS-COV2 (COVID) ANTIGEN,FIA Negative (Negative)
[2023-05-06] MEDS ORDERED: ACET-2080 PO ×2 (22:57→23:21)
[2023-05-06] MEDS ORDERED: IBUP-1554 PO ×2 (22:57→23:21)
[2023-05-06] MEDS ORDERED: PSEU-191 PO (22:57)
[2023-05-06] MEDS ORDERED: GUAIFDM PO ×2 (22:57→23:21)
[2023-05-06 23:00] VITALS: BP 127/73; PULSE 78; RESP 15; TEMP 98.3
== END 2023-05-07 | disposition home or self-care (01) ==
LOC: EMS 21:38
DX: J06.9 Acute upper respiratory infection, unspecified (principal); F31.9 Bipolar disorder, unspecified; F12.90 Cannabis use, unspecified, uncomplicated; F15.90 Other stimulant use, unspecified, uncomplicated; Z91.040 Latex allergy status; Z20.822 Contact with and (suspected) exposure to COVID-19
CPT/HCPCS: 99283

== ENCOUNTER 2023-09-13 14:57 | Emergency (ER) | payer OTHER ==
[~2023-09-13] VITALS: Ht 160 cm; Wt 93.6 kg
[~2023-09-13 14:57] MED LIST changes: +ACET-2080 PO; +GUAIFDM PO; +IBUP-1554 PO; +PSEU-191 PO
[2023-09-13 15:05] VITALS: BP 116/66; PULSE 48; RESP 16; TEMP 98.2
[2023-09-13] MEDS ORDERED: OMEP20 PO (15:05)
[2023-09-13] MEDS ORDERED: IBUP-1492 PO (15:05)
== END 2023-09-13 16:51 | disposition home or self-care (01) ==
LOC: EMS 14:57
DX: S90.852A Superficial foreign body, left foot, initial encounter (principal); R07.89 Other chest pain; R00.1 Bradycardia, unspecified; F20.9 Schizophrenia, unspecified; F31.9 Bipolar disorder, unspecified; F12.90 Cannabis use, unspecified, uncomplicated; F15.90 Other stimulant use, unspecified, uncomplicated; Z91.040 Latex allergy status; W45.8XXA Other foreign body or object entering through skin, initial encounter; Y93.89 Activity, other specified; Y92.89 Other specified places as the place of occurrence of the external cause; Y99.8 Other external cause status
CPT/HCPCS: 93005; 99284; Z7502

== ENCOUNTER 2023-12-27 18:25 | Emergency (ER) | payer OTHER ==
[~2023-12-27] VITALS: Ht 160 cm; Wt 88.2 kg
[~2023-12-27 18:25] MED LIST changes: -ACET-2080 PO; -AMOX1TAB16 PO; -GUAIFDM PO; +IBUP-1492 PO; -IBUP-1554 PO; +OMEP20 PO; -PSEU-191 PO
[2023-12-27 18:31] VITALS: TEMP 99.8
[2023-12-27 19:08] VITALS: BP 116/63; PULSE 71; RESP 14
[2023-12-27] MEDS ORDERED: ACET-66 PO (20:25)
[2023-12-27] MEDS ORDERED: CEPH-558 PO (20:25)
[2023-12-27] MEDS ORDERED: IBUP-1554 PO (20:25)
[2023-12-27] MEDS: CEPHALEXIN MONOHYDRATE 500 MG CAPSULE PO ONE (20:29)
[2023-12-27] MEDS: ACETAMINOPHEN 500 MG TABLET PO ONE (20:31)
== END 2023-12-27 20:35 | disposition home or self-care (01) ==
LOC: EMS 18:25
DX: J02.9 Acute pharyngitis, unspecified (principal); F31.9 Bipolar disorder, unspecified; F12.90 Cannabis use, unspecified, uncomplicated; F15.90 Other stimulant use, unspecified, uncomplicated; Z91.040 Latex allergy status
CPT/HCPCS: 99283

== ENCOUNTER 2024-07-05 16:15 | Emergency (ER) | payer OTHER ==
[~2024-07-05] VITALS: Ht 160 cm; Wt 90.9 kg
[~2024-07-05 16:15] MED LIST changes: +ACET-66 PO; +CEPH-558 PO; +IBUP-1554 PO
[2024-07-05 16:27] VITALS: TEMP 98.8
[2024-07-05 16:35] LABS: COVID AG,FIA SOURCE NASAL SWAB
[2024-07-05 17:00] LABS: SARS-COV2 (COVID) ANTIGEN,FIA Negative (Negative)
[2024-07-05 17:03] LABS: INFLUENZA TYPE A NEGATIVE FOR TYPE A (NEGATIVE); INFLUENZA TYPE B NEGATIVE FOR TYPE B (NEGATIVE)
[2024-07-05] MEDS ORDERED: ATOR40TA71 PO (17:16)
[2024-07-05] MEDS ORDERED: EZET10TA57 PO (17:16)
[2024-07-05] MEDS: GuaiFENesin SR 600 MG ER TABLET PO ONE (17:31)
[2024-07-05] MEDS ORDERED: 0.9% SODIUM CHLORIDE 5 ML NEB SOLUTION NEB ONE (17:39)
[2024-07-05 17:42] VITALS: PULSE 69; RESP 20; O2SAT 98
[2024-07-05] MEDS: ALBUTEROL SULFATE 2.5 MG/0.5 ML NEB SOLUTION NEB ONE (17:42)
[2024-07-05 17:51] VITALS: PULSE 70; RESP 20; O2SAT 100
[2024-07-05] MEDS ORDERED: GUAIFDM PO (19:05)
[2024-07-05] MEDS ORDERED: PRED-554 PO (19:05)
[2024-07-05] MEDS ORDERED: BENZ-227 PO (19:05)
[2024-07-05] MEDS ORDERED: GUAIF600 PO (19:05)
[2024-07-05 19:22] VITALS: BP 130/66; PULSE 75; RESP 20; O2SAT 100
== END 2024-07-05 20:05 | disposition home or self-care (01) ==
LOC: EMS 16:15
DX: J40 Bronchitis, not specified as acute or chronic (principal); F31.9 Bipolar disorder, unspecified; F12.90 Cannabis use, unspecified, uncomplicated; F15.10 Other stimulant abuse, uncomplicated; Z20.822 Contact with and (suspected) exposure to COVID-19
CPT/HCPCS: 71045; 87804; 94640; 99284; J7613